=== PATIENT | female | born 1950 | race Caucasian/White ===

== ENCOUNTER 2020-03-08 14:13 | Outpatient (REF) | payer MEDICARE, SELFPAY ==
--- NOTE | 2020-03-08 14:49 | XR_ITS ---
EXAMINATION: XR WRIST, LEFT CLINICAL INFORMATION: Left rib fracture, follow-up. COMPARISON: 01/26/2020 left wrist radiographs. TECHNIQUE: PA, lateral, and oblique views of the left wrist. FINDINGS: Again seen is a healing/healed distal radial metaphysis fracture with interval improvement. The distal ulna is intact. The carpal bones are normally aligned. There is generalized osteopenia. Mild soft tissue swelling is again noted without significant change. IMPRESSION: Healing/healed distal radial metaphysis fracture with mild interval improvement. Persistent mild soft tissue swelling.
== END 2020-03-08 14:14 | disposition home or self-care (01) ==
LOC: HO.HOSX 14:13
PROVIDERS: PCP Internal Medicine; Visit Provider Orthopaedic Surgery
DX: S52.502A Unspecified fracture of the lower end of left radius, initial encounter for closed fracture (principal); X58.XXXA Exposure to other specified factors, initial encounter; Y93.9 Activity, unspecified; Y92.9 Unspecified place or not applicable; Y99.8 Other external cause status
CPT/HCPCS: 73100; 99213

== ENCOUNTER 2020-04-05 11:00 | Outpatient (RCR) | payer MEDICARE, SELFPAY ==
--- NOTE | 2020-04-06 13:16 | MHC.OT.DC ---
[address] [phone] F: [phone] Occupational Therapy Discharge Note Provider: Wali Bettencourt Diagnosis: LEFT DISTAL RADIUS FRACTURE Date of Evaluation: 03/12/20 Date of Discharge: 04/05/20 Treatments to Date: 15 Cancellations to Date: 1 Discharge Status: Improved Function Independent with HEP Discharge Summary: Pt UTILIZING LUE FOR MOST ADLs AND IADLs AT HOME, INCLUDING RAKING OF LEAVES AND CARRYING LARGE PUMPKINS. OCCASIONAL DISCOMFORT WITH STABILIZING FOOD ITEMS WHEN CHOPPING WITH R HAND. CONTINUES TO HAVE LIMITATIONS IN WRIST FLEXION WITH PLATEAU IN MOTION. HAS REACHED MAXIMUM FUNCTIONAL LEVEL, ACHIEVED MOST GOALS AND READY FOR TRANSITION TO A HOME BASED PROGRAM. Electronically Signed By: Ursula MALDONADOED, OTR/L Please Sign and return to therapist, thank you for your referral.
== END 2020-04-08 07:45 | disposition other institution (70) ==
LOC: HO.OT 11:00
PROVIDERS: PCP Internal Medicine; Visit Provider Orthopaedic Surgery
DX: S52.572D Other intraarticular fracture of lower end of left radius, subsequent encounter for closed fracture with routine healing (principal)
CPT/HCPCS: 97018; 97033; 97035; 97110; 97140; 97530